=== PATIENT | female | born 1955 | race African-American/Black ===

== ENCOUNTER 2017-03-29 10:37 | Emergency (ER) | payer OTHER ==
[~2017-03-29] VITALS: Ht 180.3 cm; Wt 86.2 kg
[2017-03-29 11:55] LABS: BASOPHIL % 0.6 % (0-2); PLATELET COUNT 238 x10^3mcL (130-400)
[2017-03-29 12:03] LABS: CALCIUM 8.7 mg/dL (8.5-10.1); CARBON DIOXIDE 24.1 mmol/L (21-32); CREATININE SERUM 1.3 mg/dL (0.6-1.0)
[2017-03-29 12:07] LABS: ALBUMIN 3.4 g/dL (3.4-5.0); BILIRUBIN TOTAL 0.3 mg/dL (0.20-1.00); TOTAL PROTEIN, SERUM 7.1 g/dL (6.4-8.2)
[2017-03-29 12:08] LABS: RED CELL DISTRIBUTION WIDTH 17.8 % (11.5-14.5)
[2017-03-29 12:14] LABS: UA SPECIFIC GRAVITY >=1.030 (1.005-1.035); microscopic required? YES; urine erythrocyte NEGATIVE (NEGATIVE)
[2017-03-29 14:12] VITALS: BP 107/68
== END 2017-03-29 14:12 | disposition home or self-care (01) ==
LOC: ED 10:37
PROVIDERS: Emergency Medicine
DX: G40.409 Other generalized epilepsy and epileptic syndromes, not intractable, without status epilepticus (principal); I10 Essential (primary) hypertension; Z79.899 Other long term (current) drug therapy
CPT/HCPCS: J0696; J7030; Q0092